=== PATIENT | male | born 1975 | race Asian ===

== ENCOUNTER 2023-03-04 09:41 | Day surgery (SDC) | payer OTHER ==
[~2023-03-04] VITALS: Ht 175.3 cm; Wt 85.3 kg
[2023-03-04] MEDS ORDERED: fentaNYL citrate 0.05 MG/ML VIAL ONE (11:52)
[2023-03-04] MEDS ORDERED: LIDOCAINE 2% 100 MG/5 ML UJET TP ONE (11:52)
[2023-03-04] MEDS ORDERED: fentaNYL citrate 0.05 MG/ML VIAL IVP ONE (13:10)
== END 2023-03-04 13:13 | disposition home or self-care (01) ==
LOC: MOR 09:41 → MMU 09:43 → MOR 13:13
PROVIDERS: ATTEND Internal Medicine Gastroenterology
DX: Z12.11 Encounter for screening for malignant neoplasm of colon (principal); Z86.010 Personal history of colon polyps; E78.5 Hyperlipidemia, unspecified; Z79.899 Other long term (current) drug therapy
CPT/HCPCS: 45378; J3010